=== PATIENT | male | born 1955 | race Caucasian/White ===

== ENCOUNTER → 2018-06-15 09:22 | Outpatient (CLI) | payer BC, SELFPAY ==
--- NOTE | 2018-06-15 | DI.CT.S_ITS ---
PROCEDURE: CT ABDOMEN PELVIS W CON INDICATIONS: DIVERTICULITIS. LOWER PELVIC PAIN TECHNIQUE: After the administration of intravenous contrast, 5 mm thick sections acquired from the diaphragm to the symphysis. 5 mm coronal and sagittal reformats were acquired. For radiation dose reduction, the following was used: automated exposure control, adjustment of mA and/or kV according to patient size. COMPARISON: None. FINDINGS: Image quality: Excellent. ABDOMEN: Lung bases: 3 mm pulmonary nodule in the right lower lobe on axial image 8 of series 3. Heart size is normal. Solid organs: Liver is normal in size and enhancement. Gallbladder is unremarkable. Biliary system is non dilated. Pancreas enhances normally. Subcentimeter echogenic focus in the posterior spleen likely represents a splenic cyst or hemangioma. Spleen is otherwise normal in size and enhancement. No adrenal nodules. Kidneys demonstrate normal size and enhancement, without hydronephrosis. Peritoneum and bowel: Bowel loops demonstrate normal wall thickness and caliber. No free fluid or air. There is mild pericolonic fat stranding of the sigmoid colon consistent with acute diverticulitis. No adjacent drainable fluid collection/abscess. Nodes and vessels: No retroperitoneal or mesenteric adenopathy by size criteria. Aorta and inferior vena cava are normal in size. Mild calcified and noncalcified plaque of the abdominal aorta and branch vessels. Miscellaneous: No ventral hernias. PELVIS: Genitourinary: There is a small round 1.0 cm anterior urachal remnant. Bladder wall thickness is otherwise normal. Prostate is markedly enlarged. Miscellaneous: Small fat-containing left inguinal hernia. Bones: No suspicious bony lesions. No vertebral body compression fractures. Minimal multilevel degenerative changes of the spine. IMPRESSION: #1. Acute sigmoid colon diverticulitis without evidence of perforation or abscess. #2. Incidental note is made of a small round 1.0 cm anterior urachal remnant/mass arising from the anterior bladder. Consider followup CT to ensure stability or urology consult. Findings discussed with the ordering provider Dr. Nima Wolff at approximately 11:20 AM on 06/15/[address] Grant. Dictated by: Ortega Grant M.D. on 06/15/2018 at 11:02 Approved by: Ortega Grant M.D. on 06/15/2018 at 11:23
[2018-06-15 10:28] LABS: BUN Creatinine Ratio 17.8 (6-22); Blood Urea Nitrogen 16 mg/dL (9-20); Calcium 9.7 mg/dL (8.4-10.2); Carbon Dioxide 30 mmol/L (22-32); Chloride 105 mmol/L (98-107); Estimated Glomerular Filt Rate > 60.0 mL/min (>60); Glucose 99 mg/dL (80-110); HEMOLYSIS < 15 (0-50); Potassium 4.6 mmol/L (3.4-5.1); Sodium 144 mmol/L (137-145)
== END ==
PROVIDERS: Family Provider Family Medicine; PCP Family Medicine; Visit Provider Family Medicine
DX: K57.32 Diverticulitis of large intestine without perforation or abscess without bleeding (principal); R10.2 Pelvic and perineal pain; N32.9 Bladder disorder, unspecified
CPT/HCPCS: 36415; 74177; 80048; Q9967

== ENCOUNTER 2018-08-07 06:45 | Day surgery (SDC) | payer BC, SELFPAY ==
--- NOTE | 2018-08-07 | PATH_ITS ---
[facility] Accession Number: [id number] . 01 Material submitted: . COLON POLYP AT 30CM . 02 Diagnosis: Colon, Polyp at 30 cm, Biopsy: Sessile serrated adenoma. [facility]/08/08/2018 . 02 Electronically signed: . Candy Al MD, Pathologist NPI- [id number] . 01 Gross description: . Received in one formalin-filled container labeled with the patient's name and labeled colon polyp at 30 cm, are two 0.1-0.5 cm portions of tissue, entirely submitted in one cassette. ([id number]) /FRR . 02 Pathologist provided ICD-10: D12.6 . 02 CPT . 574109 Performed at: 01 [facility] [address] [facility] [place], [place], [place] [id number] MD Harman Mariee MD Phone: [phone] Performed at: 02 [facility] [address] [place], [place] [id number] MD Luis Manuel Galvan MD Phone: [phone]
[2018-08-07 07:05] VITALS: BMI 27.3
[2018-08-07 07:10] VITALS: BP 131/87; PULSE 65; RESP 16; TEMP 36.9; O2SAT 99
--- NOTE | 2018-08-07 07:54 | PM.HP.1 ---
History of Present Illness Date Patient Seen: 08/07/18 Time Patient Seen: 07:46 Chief complaint: colonoscopy 45685 Narrative: The patient is a gentleman here for a colonoscopy. He was treated for diverticulitis and his symptoms have now resolved. Patient History Surgical History H/O detached retina repair (Resolved) History of bilateral inguinal hernia repair (Resolved) History of detached retina repair (Resolved) History of left cataract surgery (Resolved) History of right cataract surgery (Resolved) Hx of cataract surgery (Resolved) Family & Social History Family History: Reviewed 08/07/18 by Paul Dudley MD Social History: household members spouse Tobacco & Substance use: Smoking Status Never smoker alcohol intake current Meds Home Medications Medication Instructions Recorded Confirmed Type atorvastatin 20 mg PO DAILY 06/22/18 08/07/18 History cholecalciferol (vitamin D3) 62 mcg PO DAILY 06/22/18 08/07/18 History multivitamin tablet 1 tab PO DAILY 06/22/18 08/07/18 History omega-3 acid ethyl esters 500 mg PO DAILY 06/22/18 08/07/18 History Allergies Allergy/AdvReac Type Severity Reaction Status Date / Time No Known Drug Allergies Allergy Verified 08/07/18 07:02 Review of Systems Review of Systems Patient suffers from hypertension elevated cholesterol is on medication for same. No breathing issues no chest pain heart disease. No black or bloody bowel movements. Has a kidney stones in the past. It is intermittent headaches. Exam Vital Signs (past 8 hours): - 08/07/18 07:10 Temperature 98.5 F Pulse Rate 65 Respiratory Rate 16 Blood Pressure 131/87 Pulse Oximetry 99 Oxygen Delivery Method Room Air Narrative Exam Narrative: Operative no apparent distress. His lungs are clear to auscultation without rales or rhonchi. Heart regular rate and rhythm without murmur gallop. Abdomen was scaphoid soft nontender without masses. No fullness. Alert and oriented x3. Assessment & Plan Plan: Assessment/Plan Narrative: Will proceed to colonoscopy to evaluate his colon for neoplastic causes of the inflammation of his colon. I have discussed the procedure and the rationale with the patient including risks of bleeding, perforation which would necessitate a major operation, failure to find remove all lesions and the potential to tattoo. They appeared to understand and wished to proceed.
--- NOTE | 2018-08-07 07:57 | PM.PREOP ---
Pre-operative Note Interval Note Pre-op Check: Yes History & Physical exam performed today by Physician Changes: No ASA Class (for procedural sedation): II
[2018-08-07] MEDS: MIDAZOLAM 5 MG/5 ML VIAL IV (08:29)
[2018-08-07] MEDS: fentaNYL 250 MCG/5 ML INJ IV (08:30)
[2018-08-07 08:43] VITALS: BP 125/67; PULSE 67; RESP 14; TEMP 36.6; O2SAT 95
--- NOTE | 2018-08-07 08:45 | PM.OP.ENDO ---
Operative Date/Time/Diagnoses Date of procedure: 08/07/18 Time of procedure: 08:45 Pre-op diagnosis: History of diverticulitis. Last colonoscopy over 9 years ago. Post-op diagnosis: same (Sigmoid diverticulosis. No evidence of active inflammation. Small polyp at 30 cm from the anal verge. Enlarged prostate. Internal hemorrhoids without ulceration.) Procedure & Clinicians Study performed: Colonoscopy with cold biopsy Same procedure as scheduled: Yes Indications: Study performed to rule out neoplastic cause of inflammation of the colon. Surgeon: Paul Dudley Procedure Notes SCOAP/Timeout: Performed Procedure in detail: The patient was placed in the left lateral decubitus position and underwent IV sedation directed by the surgeon consisting of fentanyl and Versed. Digital exam was remarkable for enlarged prostate. I could only feel the distal half of it. Sphincter tone in external appearance was normal. The scope was inserted and advanced through the rectum into the sigmoid where I encountered a small polyp. I biopsied and completely removed it. I continued on into the descending, transverse, and ascending colon. Pressure was applied.. The cecum was reached identified by the ileocecal valve and the appendiceal opening. The scope was gradually brought out. No other Polyps were found. The scope ultimately was attempted to be retroflexed in the rectum. This proved unsuccessful. Therefore the scope was slowly brought through the anal canal. The appearance was remarkable for internal hemorrhoids without ulceration. The scope was removed and the patient tolerated the procedure well Scope withdrawal time: Over 9 min Sedation minutes: 23 Findings: diverticulosis (Sigmoid), internal hemorrhoids and polyp (30 cm from the anal verge. Tiny.) Specimen(s): other (Polyp) Complications: none Recommendations: Colonscopy in 5 years (If this polyp is not neoplastic, then 10 years would be more appropriate.) Plan for aftercare: Follow-up is needed. Will send letter regarding pathology and follow-up. Follow up: as needed Disposition: PACU
[2018-08-07 08:47] VITALS: BP 108/76; PULSE 67; RESP 15; O2SAT 99
[2018-08-07 08:50] VITALS: PULSE 63; RESP 16; TEMP 36.7; O2SAT 96
[2018-08-07 08:51] VITALS: BP 112/76
== END 2018-08-07 09:15 | disposition home or self-care (01) ==
PROVIDERS: Family Provider Family Medicine; PCP Family Medicine; Visit Provider Specialist
PROC: 0DJD8ZZ Inspection of Lower Intestinal Tract, Via Natural or Artificial Opening Endoscopic (ICD-10-PCS; CPT 45378; principal; 2018-08-07 07:45)
DX: Z87.19 Personal history of other diseases of the digestive system (principal); K57.30 Diverticulosis of large intestine without perforation or abscess without bleeding; K64.0 First degree hemorrhoids; N40.0 Benign prostatic hyperplasia without lower urinary tract symptoms; D12.6 Benign neoplasm of colon, unspecified
CPT/HCPCS: 45380; 99152; 99153; J2250; J3010

== ENCOUNTER → 2022-12-22 07:58 | Outpatient (CLI) | payer MEDICARE, OTHER, SELFPAY ==
--- NOTE | 2022-12-22 | DI.ECHO.S_ITS ---
[facility]---------+ [facility] +---------+ : : [address] : : : : [id number] : : : : Phone: [phone] Echocardiogram Report + + :Name: PAUL LEBLANC V Study Date: 12/22/2022 Height: 68 in : [facility] Weight: 190 lb : : Gender: Male BSA: 2.0 m2 : :: 1955 Age: 67 yrs BP: 114/69 mmHg: :Reason For Study: MURMUR HR: 60 : :Ordering Physician: HERMINIA, : :CARMEN Performed By: CAS DUMONT : :Referring: CARMEN HOPE : + + Interpretation Summary 1) Normal left ventricular thickness, size, wall motion, and systolic function (EF 60-65%). 2) Normal right ventricular size and function. 3) There is mild aortic stenosis (valve area 1.8cm2, mean gradient 12mmHg, severity ratio 0.64). 4) No prior Echo available for comparison. Procedure: A two-dimensional transthoracic echocardiogram with color flow and Doppler was performed. The study quality was technically adequate. There is no prior echocardiogram noted for this patient. The patient was in normal sinus rhythm during the exam. Left Ventricle: The left ventricle is normal in size and wall thickness. Left ventricular systolic function is normal. The ejection fraction is estimated to be 60-65%. Diastolic parameters suggest probable normal left ventricular diastolic function and normal filling pressures. Right Ventricle: The right ventricle is normal in size and function. Atria: Both atria are normal in size. Mitral Valve: The mitral valve leaflets appear mildly thickened, but open well. There is no mitral regurgitation noted. Aortic Valve: The aortic valve is moderately calcified. There is discrete nodular thickening of the non- coronary cusp. There is mild aortic stenosis. The aortic valve area indexed to the BSA is 0.91 . The peak aortic velocity is 2.3 m/sec. The aortic valve mean gradient is 12 mmHg. There is no aortic regurgitation. Tricuspid Valve: The tricuspid valve is normal in structure and function. No tricuspid regurgitation. Pulmonary artery pressures cannot be estimated because of the lack of a measurable TR jet velocity. Pulmonic Valve: The pulmonic valve leaflets are thin and pliable; valve motion is normal. There is no pulmonic valvular regurgitation. Great Vessels: The aortic root is normal size. The ascending aorta is normal in size. The IVC is of normal diameter and collapses greater than 50% with a sniff. This suggests a low right atrial pressure of 3 mm Hg. Pericardium/ Pleura There is no pericardial effusion. There is no pleural effusion. MMode/2D Measurements & Calculations LVIDd: 4.3 cm LVOT diam: 1.9 cm LVIDs: 2.8 cm Ao root diam: 3.0 cm FS: 34.9 % asc Aorta Diam: 3.3 cm IVSd: 0.90 cm LVPWd: 1.0 cm LV steele. diameter/BSA (cm/m^2): 2.2 LV sys. diameter/BSA (cm/m^2): 1.4 LA A2 area: 18.7 cm2 RA long axis: 5.2 cm LA A4 area: 15.1 cm2 LA length (vol): 5.5 cm LA vol: 43.6 ml LA vol index: 21.8 ml/m2 LVLs ap4: 5.8 cm LVLd ap2: 7.5 cm LVLs ap2: 6.0 cm TAPSE_phl: 2.5 cm Doppler Measurements & Calculations Ao V2 max: 228.0 cm/sec LVOT Max Genaro: 164.0 cm/sec Ao V2 mean: 164.0 cm/sec LV V1 max P.8 mmHg Ao max P.0 mmHg LV V1 VTI: 31.7 cm Ao mean P.0 mmHg SHANELL(I,D): 1.8 cm2 Ao V2 VTI: 49.5 cm SHANELL(V,D): 2.0 cm2 sev ratio: 0.64 SHANELL indexed to BSA (cm^2/m^2): 0.91 MV E max genaro: 88.7 cm/sec PA V2 max: 146.0 cm/sec MV A max genaro: 87.4 cm/sec PA V2 mean: 108.0 cm/sec MV E/A: 1.0 PA mean P.0 mmHg Med Peak E' Genaro: 8.3 cm/sec PA pr(Accel): 30.0 mmHg E/E' med: 10.7 Lat Peak E' Genaro: 11.6 cm/sec E/E' lat: 7.6 E/e' average: 9.2 MV dec time: 0.24 sec SV(LVOT): 89.9 ml AV VR_phl: 0.67 SHANELL(VTI)/BSA_phl: 0.92 MV P1/2t-pr_phl: 71.0 msec Reading Physician:10:04 AM
== END ==
PROVIDERS: Family Provider Family Medicine; PCP Family Medicine; Referring Provider Family Medicine; Visit Provider Family Medicine
DX: R01.1 Cardiac murmur, unspecified (principal); I35.0 Nonrheumatic aortic (valve) stenosis
CPT/HCPCS: 93306

== ENCOUNTER 2025-01-07 07:04 | Day surgery (SDC) | payer MEDICARE, OTHER, SELFPAY ==
[2025-01-07] VITALS (7 sets, daily range): BP systolic 87–124; BP diastolic 53–75; PULSE 48–63; RESP 12–18; TEMP 36.4–37.3; O2SAT 94–99
--- NOTE | 2025-01-07 | PATH_ITS ---
[facility] Accession Number: [id number] No. of containers..03 Tissue . 01 Material submitted: . PART A: colon - ASCENDING COLON POLYP PART B: colon - SIGMOID COLON POLYP PART C: rectum - RECTAL POLYP . 01 Diagnosis: Part A: ASCENDING COLON POLYP: Serrated polyp, cannot exclude the possibility of sessile serrated adenoma. . Part B: SIGMOID COLON POLYP: Hyperplastic polyp. . Part C: RECTAL POLYP: Hyperplastic polyp. [facility] 01/08/2025 1338 Local . 01 Electronically signed: . Harman Mariee MD, Pathologist NPI- [id number] . 01 Gross description: . Part A: ASCENDING COLON POLYP: Received in formalin are multiple fragment(s) of black, soft tissue measuring 0.1 x 0.1 x 0.1 cm to 1.4 x 0.4 x 0.3 cm submitted entirely in 1 cassette(s) . Part B: SIGMOID COLON POLYP: Received in formalin is 1 fragment(s) of black, soft tissue measuring 0.4 x 0.4 x 0.1 cm submitted entirely in 1 cassette(s) . Part C: RECTAL POLYP: Received in formalin is 1 fragment(s) of black, soft tissue measuring 0.2 x 0.2 x 0.2 cm submitted entirely in 1 cassette(s) /[facility] 01/08/2025 1338 Local . 01 Pathologist provided ICD-10: D12.2, K62.1, K63.5 . 01 CPT . 585583, 427682, 897314 Specimen Comment: A courtesy copy of this report has been sent to [facility] Pathology Performed at: 01 [facility] [address], [place], [place] [id number] MD Harman Mariee MD Phone: [phone]
[2025-01-07] MEDS: LACTATED RINGERS 1,000 ML 42 ML IV (07:49)
--- NOTE | 2025-01-07 08:10 | PM.HP.IH.1 ---
History of Present Illness History of Present Illness Date Patient Seen: 01/07/25 Time Patient Seen: 08:10 Chief complaint: SDC Narrative: 69-year-old white male, previous adenomatous polyps 7 years ago, presents for screening and surveillance. [facility] Surgical History History of left cataract surgery History of right cataract surgery History of detached retina repair History of bilateral inguinal hernia repair Hx of cataract surgery H/O detached retina repair Family History Father Hypertension Heart disease Skin cancer Mother Ovarian cancer Social History marital status: household members: spouse occupational status: previously employed Smoking Status: Never smoker alcohol intake: current substance use type: does not use Meds Home Medications and Allergies Home Medications Medication Instructions Recorded Confirmed Type atorvastatin [Lipitor] 20 mg PO DAILY 06/22/18 01/07/25 History cholecalciferol (vitamin D3) 62 mcg PO DAILY 06/22/18 08/07/18 History multivitamin 1 tab PO DAILY 06/22/18 08/07/18 History omega-3 acid ethyl esters 500 mg PO DAILY 06/22/18 08/07/18 History sodium,potassium,mag sulfates 17.5 See Rx Instructions PO .COMPLEX 11/29/24 Rx gram-3.13 gram-1.6 gram oral soln #354 mL (Suprep Bowel Prep Kit) hydrochlorothiazide 25 mg tablet 25 mg PO DAILY 01/07/25 01/07/25 History lisinopril 40 mg tablet 40 mg PO DAILY 01/07/25 01/07/25 History Allergies Allergy/AdvReac Type Severity Reaction Status Date / Time No Known Drug Allergies Allergy Verified 01/07/25 07:15 Review of Systems Review of Systems ROS: Yes All systems reviewed with the patient and are negative except as otherwise documented Exam Vital Signs (past 8 hours): - 01/07/25 07:20 Temperature 97.5 F L Pulse Rate 62 Respiratory Rate 16 Blood Pressure 124/75 Pulse Oximetry 98 Oxygen Delivery Method Room Air Oxygen Delivery Method Room Air Narrative Exam Narrative: Gen: NAD, sitting comfortably in bed, appears well HEENT: Sclera are anicteric, head is normocephalic and atraumatic, trachea is midline. CV: RRR, no JVD Resp: clear to auscultation bilaterally, equal chest wall movement bilaterally Abd: soft, nontender, normoactive bowel sounds Ext: no edema, full range of motion Neuro: Cranial nerves II-XII grossly intact, no focal deficits Skin: No erythema or ecchymosis Assessment & Plan Assessment and plan (1) Personal history of colonic polyps: Status: Acute Assessment & Plan narrative: Patient presents for colonoscopy Risks, benefits, alternatives to colonoscopy explained, including but not limited to bowel perforation or other serious complication requiring surgery at less than 1 in 5000 colonoscopies, abdominal pain, cramping or bleeding and less than 1% of colonoscopies, and the chances that we find a diagnosis that would require further intervention of about 2%. Patient agrees to proceed. Time-Based Coding :: [TOTAL MINUTES] spent with patient and on the chart (including review of chart, obtaining history, exam, reviewing outside data, placing orders, documenting exam and treatment plan, and counseling patient) on [DATE]. [employer] Analyst Document charge(s): No
--- NOTE | 2025-01-07 08:33 | PM.OP.COLON ---
Operative Date/Time/Diagnoses Date of procedure: 01/07/25 Time of procedure: 08:34 Pre-op diagnosis: personal history of polyps Post-op diagnosis: same (Ascending colon polyp, sigmoid polyp, rectal polyp) Procedure & Clinicians Study performed: Colonoscopy with cold snare polypectomy Same procedure as scheduled: Yes Indications: Personal history of polyp Surgeon: Nabeel Ward Procedure Notes SCOAP/Timeout: Performed Procedure in detail: Time-out was performed. Mac was induced. Patient was placed in left lateral decubitus position. The perineum was inspected without any gross abnormality. Lubricated pediatric colonoscope was inserted and advanced to the cecum. The terminal ileum was intubated. The colonoscope was withdrawn slowly inspecting the circumference of the colon. Benign-appearing polyps were noted in the ascending, sigmoid and rectum. These were removed completely with cold snare polypectomy and retrieved. Sigmoid diverticulosis was noted. Very small polyps may have been missed, prep quality was adequate. Retroflexed view of the rectum showed small, non prolapsed nonbleeding internal hemorrhoids. The scope was withdrawn the patient was taken to PACU in good condition. Scope withdrawal time: 11 Findings: divertiulosis, internal hemorrhoids and polyp(s) Specimen(s): other (1. Ascending 2. Sigmoid 3. Rectal) Complications: none Impression: benign polyps Post-procedure Recommendations: Colonoscopy in 3 years Plan for aftercare: home Follow up: as needed Disposition: PACU
== END 2025-01-07 09:27 | disposition home or self-care (01) ==
PROVIDERS: Family Provider Family Medicine; PCP Family Medicine; Referring Provider Surgery; Visit Provider Surgery
PROC: 0DJD8ZZ Inspection of Lower Intestinal Tract, Via Natural or Artificial Opening Endoscopic (ICD-10-PCS; CPT 45378; principal; 2025-01-07 08:15)
DX: Z12.11 Encounter for screening for malignant neoplasm of colon (principal); Z86.0100 Personal history of colon polyps, unspecified; K57.30 Diverticulosis of large intestine without perforation or abscess without bleeding; K64.8 Other hemorrhoids; K63.5 Polyp of colon; K62.1 Rectal polyp
CPT/HCPCS: 45385; J2704

== ENCOUNTER → 2025-01-28 09:15 | Outpatient (CLI) | payer MEDICARE, OTHER, SELFPAY ==
--- NOTE | 2025-01-28 09:16 | DI.ECHO.S_ITS ---
[place] +---------+ Hospital : : [address] : : [id number] : : Phone: [phone] Echocardiogram Report + + :Name: PAUL LEBLANC V Study Date: 01/28/2025 Height: 68 in : :[facility] ReadingLocation: Weight: 170 lb : : Gender: Male BSA: 1.9 m2 : :: 1955 Age: 69 yrs BP: 106/68 mmHg: :Reason For Study: AORTIC VALVE STENOSIS : :Ordering Physician: HERMINIA, : :CARMEN Performed By: Rufus Maria : :Referring: CARMEN HOPE : + + Interpretation Summary The left ventricle is normal in size. The left ventricular ejection fraction is normal. The ejection fraction is estimated to be 60-65%. The right ventricle is normal in size and function. The aortic valve is moderately calcified. There is mildly reduced leaflet mobility. Peak aortic valve velocity 2.15 m/s, mean gradient 11.5 mmHg. Mild aortic stenosis. Previous peak aortic velocity 2.28 m/s. There is no hemodynamically significant valvular aortic stenosis. The IVC is of normal diameter and collapses greater than 50% with a sniff. This suggests a low right atrial pressure of 3 mm Hg. There is aortic root sclerosis/calcification. Procedure: A two-dimensional transthoracic echocardiogram with color flow and Doppler was performed. The study quality was technically adequate. Comparison is made with the echocardiogram of 12/22/2022. The patient was in sinus rhythm with heart rates between 57-66 bpm during the exam. Left Ventricle: The left ventricle is normal in size. There is normal left ventricular wall thickness. There is no thrombus. Left ventricular systolic function is normal. The ejection fraction is estimated to be 60-65%. The left ventricular ejection fraction is normal. There are no focal wall motion abnormalities. Diastolic parameters suggest probable normal left ventricular diastolic function and normal filling pressures. Right Ventricle: The right ventricle is normal in size and function. Atria: Both atria are normal in size. There has been no significant change since the previous study. There is no Doppler evidence for an interatrial shunt. Mitral Valve: The mitral valve leaflets appear to open well. There is mild mitral annular calcification. There is no mitral valve stenosis. There is trace mitral regurgitation. Aortic Valve: The aortic valve is trileaflet. The aortic valve is moderately calcified. There is mildly reduced leaflet mobility. There is no hemodynamically significant valvular aortic stenosis. No aortic regurgitation is present. Tricuspid Valve: The tricuspid valve is normal. There is trace tricuspid regurgitation. The right ventricular systolic pressure is estimated to be at least 22 mmHg based on an estimated right atrial pressure of 3 mm Hg. Pulmonic Valve: The pulmonic valve is not well visualized. There is a trace or physiologic amount of pulmonic regurgitation. Great Vessels: The aortic root is normal size. There is aortic root sclerosis/calcification. The ascending aorta is normal in size. The aortic arch is normal in size. The IVC is of normal diameter and collapses greater than 50% with a sniff. This suggests a low right atrial pressure of 3 mm Hg. Pericardium/ Pleura There is no pericardial effusion. There is no pleural effusion. MMode/2D Measurements & Calculations LVIDd: 4.7 cm LVOT diam: 2.0 cm LVIDs: 3.0 cm Ao root diam: 3.2 cm FS: 36.6 % asc Aorta Diam: 3.3 cm EPSS: 0.49 cm Ao Arch Diam (Prox Trans): 2.8 cm IVSd: 1.0 cm LVPWd: 0.89 cm LV steele. diameter/BSA (cm/m^2): 2.4 LV sys. diameter/BSA (cm/m^2): 1.6 LA A2 area: 20.0 cm2 RA long axis: 4.6 cm LA A4 area: 17.9 cm2 RA area: 14.0 cm2 LA length (vol): 5.4 cm RA vol: 36.5 ml LA vol: 56.0 ml RA : 19.1 ml/m2 LA vol index: 29.3 ml/m2 IVC diam: 1.7 cm RVD1 (basal): 3.6 cm TAPSE: 2.0 cm Doppler Measurements & Calculations Ao V2 max: 215.3 cm/sec LVOT Max Genaro: 123.1 cm/sec Ao V2 mean: 160.0 cm/sec LV V1 max P.1 mmHg Ao max P.5 mmHg LV V1 VTI: 25.0 cm Ao mean P.5 mmHg SHANELL(I,D): 1.8 cm2 Ao V2 VTI: 45.7 cm SHANELL(V,D): 1.9 cm2 sev ratio: 0.55 SHANELL indexed to BSA (cm^2/m^2): 0.95 MV E max genaro: 86.3 cm/sec TR max genaro: 224.3 cm/sec MV A max genaro: 74.7 cm/sec TR max P.7 mmHg MV E/A: 1.2 PA V2 max: 96.6 cm/sec Med Peak E' Genaro: 8.2 cm/sec PA V2 mean: 73.7 cm/sec E/E' med: 10.5 PA mean P.3 mmHg Lat Peak E' Genaro: 10.8 cm/sec PA pr(Accel): 29.3 mmHg E/E' lat: 8.0 E/e' average: 9.2 MV dec time: 0.21 sec SV(LVOT): 82.4 ml Reading Physician:05:40 PM
== END ==
LOC: ECHO 09:15
PROVIDERS: Family Provider Family Medicine; PCP Family Medicine; Referring Provider Family Medicine; Visit Provider Family Medicine
DX: I35.0 Nonrheumatic aortic (valve) stenosis (principal); I34.81 Nonrheumatic mitral (valve) annulus calcification
CPT/HCPCS: 93306